=== PATIENT | female | born 1985 | race Caucasian/White ===

== ENCOUNTER 2016-09-02 19:10 | Emergency (ER) | payer MEDICAID ==
[~2016-09-02] VITALS: Ht 154.9 cm; Wt 77.1 kg
[2016-09-02 19:26] VITALS: BP 145/84
== END 2016-09-02 20:18 | disposition home or self-care (01) ==
LOC: ER 19:22
DX: S13.4XXA Sprain of ligaments of cervical spine, initial encounter (principal); E11.9 Type 2 diabetes mellitus without complications; V49.60XA Unspecified car occupant injured in collision with unspecified motor vehicles in traffic accident, initial encounter; Y93.89 Activity, other specified; Y92.413 State road as the place of occurrence of the external cause; Y99.8 Other external cause status
CPT/HCPCS: 99282; A4606; Z7610; Z7502